=== PATIENT | female | born 1970 | race Caucasian/White ===

== ENCOUNTER 2017-09-24 14:42 | Emergency (ER) | payer OTHER ==
--- NOTE | 2017-09-24 15:42 | UC ---
Shortness of Breath HPI - HPI Summary HPI Summary: onset of shortness of breath today associated with "bubbling sensation in her chest" which feels like an irregular beat. No chest pain. Has had reflux symptoms since eating pizza last night, coffee this morning, and cold pizza for lunch. Had some relief with TUMS. Has hx of hypertension and wanted to ease her mind before [place] this [place]. Called Dr. Lloyd's office and was advised to go to the ER, but came here instead for assessment. Initial blood pressure was high, lower on recheck. She does not do home BP checks. Does not know her cholesterol, has not been a smoker. - History of Current Complaint Chief Complaint: UCRespiratory Stated Complaint: SOB Time Seen by Provider: 09/24/17 15:22 Hx Obtained From: Patient ?: No Onset/Duration: Gradual Onset, Lasting Hours - 3 hours Current Severity: Mild Dyspnea At: Rest Aggrevating Factors: Allergens - had perfume exposure today Alleviating Factors: Other - hx of asthma, has not used albuterol today. TUMS gave partial relief of reflux symptoms Associated Signs & Symptoms: Positive: Other - irregular heart rate for a few seconds relieved by a cough - Risk Factors Pulmonary Embolism: Negative Cardiac: Hypertension, Family History - maternal uncled [place] age 47 Pseudomonas: Negative Tuberculosis: Negative - Allergy/Home Medications Allergies/Adverse Reactions: Allergies Allergy/AdvReac Type Severity Reaction Status Date / Time Bupropion [From Wellbutrin] Allergy Hives Verified 09/24/17 15:22 Iodinated Diagnostic Agents Allergy See Comment Verified 09/24/17 15:22 Home Medications: Home Medications Albuterol HFA INHALER* [Ventolin HFA Inhaler*] PRN 09/24/17 [History Confirmed 09/24/17] Multiple Vitamins W/ Minerals [Airborne Gummies] 2 chw PO EVERY OTHER DAY [History Confirmed 09/24/17] PMH/Surg Hx/FS Hx/Imm Hx - Additional Past Medical History Additional PMH: hx of thyroiditis in the past Previously Healthy: Yes Cardiovascular History: Hypertension GI/ History: Gastroesophageal Reflux - Surgical History Surgical History: Yes Surgery Procedure, Year, and Place: right shoulder jul 2001 - Family History Known Family History: Positive: Cardiac Disease - maternal uncled [place] age 47 - Social History Occupation: Employed Full-time Alcohol Use: Occasionally Substance Use Type: None Smoking Status (MU): Never Smoked Tobacco Review of Systems Constitutional: Other - with past thyroid dysfunction, had hand paresthesias, felt unwell. Skin: Negative Eyes: Negative ENT: Negative Respiratory: Shortness Of Breath - today, had perfume exposure. Aware of increasing anxiety with her symptoms. Cardiovascular: Palpitations - brief, relieve with a cough, occurred about every 30 minutes or so today. Gastrointestinal: Other - reflux, relieved with TUMS Genitourinary: Negative Motor: Negative Neurovascular: Negative Musculoskeletal: Negative Neurological: Headache - last week had headache which she associates with elevated BP, but she did not check her blood pressure. Psychological: Negative Is Patient Immunocompromised?: No All Other Systems Reviewed And Are Negative: Yes Physical Exam Triage Information Reviewed: Yes Appearance: Well-Appearing, No Pain Distress Vital Signs: Initial Vital Signs Temp 98.2 F 09/24/17 15:03 Pulse 89 09/24/17 15:03 Resp 16 09/24/17 15:03 BP 166/100 09/24/17 15:03 Pulse Ox 97 09/24/17 15:03 Eye Exam: Normal ENT: Positive: Pharynx normal Neck: Positive: Supple, Nontender Respiratory: Positive: Lungs clear, Normal breath sounds Cardiovascular: Positive: RRR, No Murmur Abdomen Description: Positive: Nontender, No Organomegaly, Soft Musculoskeletal Exam: Normal Neurological Exam: Normal Psychological Exam: Normal Skin Exam: Normal Diagnostics - EKG Cardiac Rate: NL Cardiac Rhythm: Sinus: Normal Ectopy: None ST Segment: Normal Shortness of Breath Dx - Course Course Of Treatment: albuterol as needed, begin otc prilosec for reflux. - Differential Dx/Diagnosis Differential Diagnosis/HQI/PQRI: Asthma, Other - palpitations. Provider Diagnoses: reflux, palpitations NYD, hypertension Discharge - Discharge Plan Condition: Stable Disposition: HOME Patient Education Materials: Gastroesophageal Reflux Disease (ED) Referrals: Monroe Lloyd MD [Primary Care Provider] - Additional Instructions: You can use prilosec for reflux if TUMS are not effective. Take 20mg 20 to 30 minutes before a meal Ensure that you are doing home blood pressure checks a couple of times per week to determine how well contolled your blood pressure is. Should you have recurrent shortness of breath, please go to the ER for a work up and lab testing that cannot be provided at convenient care.
[2017-09-24 15:47] VITALS: BP 135/95
[2017-09-24 19:28] LABS: BUN/Creatinine Ratio 25.9 (8-20); Calcium 9.7 mg/dL (8.6-10.3); EGFR African American 142.1 (>60); EGFR Non-African American 110.5 (>60); Magnesium 1.7 mg/dL (1.9-2.7); Potassium 4.1 mmol/L (3.5-5.0)
[2017-09-24 19:35] LABS: TSH (Thyroid Stimulating Horm) 2.78 mcIU/mL (0.34-5.60)
== END 2017-09-24 16:20 | disposition home or self-care (01) ==
LOC: UCEAST 14:42
DX: K21.9 Gastro-esophageal reflux disease without esophagitis (principal); R00.2 Palpitations; I10 Essential (primary) hypertension
CPT/HCPCS: 36415; 80048; 83735; 84443; 93005; 99212; G0463